=== PATIENT | male | born 1995 | race Caucasian/White ===

== ENCOUNTER 2017-06-26 01:00 | Inpatient (IN) | payer OTHER ==
[2017-06-26 01:12] LABS: Glucose,Whole Blood 113 mg/dL (75-99)
[2017-06-26] MEDS ORDERED: SODIUM CHLORIDE 0.9% 500 ML IV STA (01:24)
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
[2017-06-26 01:33] LABS: Basophils # (A) 0.1 k/uL (0-0.2); Basophils % (A) 1 %; CHCM 34.1; Eosinophils # (A) 0.1 k/uL (0-0.7); Eosinophils % (A) 1 %; HCT 43.3 % (39.0-53.0); HDW 2.53; HGB 14.5 gm/dL (13.0-17.5); Luc # (Auto) 0.16; Luc % (Auto) 2; Lymphocytes # (A) 2.7 k/uL (1.0-4.8); Lymphocytes % (A) 31 %; MCH 30.6 pg (25.0-35.0); MCHC 33.5 g/dL (31.0-37.0); MCV 91.4 fL (80.0-100.0); Mean Platelet Volume 8.1; Monocytes # (A) 0.6 k/uL (0-1.0); Monocytes % (A) 7 %; Neutrophils # (A) 5.3 k/uL (1.3-7.7); Neutrophils % (A) 59 %; RBC 4.74 m/uL (4.30-5.90); RDW 14.1 % (11.5-15.5); WBC 8.9 k/uL (3.8-10.6); WBC (Perox) 9.04
[2017-06-26] MEDS ORDERED: RX INFO: IV CONTRAST WAS GIVEN 1 EACH MISC MISCELLANE PRN (01:35)
[2017-06-26 01:46] LABS: INR 1.1 (<1.2); Partial Thromboplastin Time 26.6 sec (22.0-30.0); Prothrombin Time 11.1 sec (9.0-12.0)
[2017-06-26 01:48] LABS: ALT 51 U/L (21-72); AST 35 U/L (17-59); Alkaline Phosphatase 79 U/L (38-126); Blood Urea Nitrogen 17 mg/dL (9-20); Calcium 9.3 mg/dL (8.4-10.2); Carbon Dioxide 27 mmol/L (22-30); Chloride 101 mmol/L (98-107); Glucose 110 mg/dL (74-99); Non-African American GFR(MDRD) >60 (>60 ml/min/1.73 sqM); Potassium 4.1 mmol/L (3.5-5.1); Total Bilirubin 0.5 mg/dL (0.2-1.3); Total Protein 7.1 g/dL (6.3-8.2)
[2017-06-26 01:58] LABS: Creatine Kinase 125 U/L (55-170)
[2017-06-26 02:01] LABS: Anion Gap 13 mmol/L; Sodium 141 mmol/L (137-145)
--- NOTE | 2017-06-26 02:05 | CT ---
EXAM: CT Angiography Head With Intravenous Contrast CLINICAL HISTORY: Reason: Neuro Deficits TECHNIQUE: Axial computed tomographic angiography images of the head with intravenous contrast using CT angiography protocol. CTDI is 57.40 mGy and DLP is 1008.10 mGy-cm. This CT exam was performed using one or more of the following dose reduction techniques: automated exposure control, adjustment of the mA and/or kV according to patient size, and/or use of iterative reconstruction technique. MIP reconstructed images were created and reviewed. COMPARISON: No relevant prior studies available. FINDINGS: Right internal carotid artery: No acute findings. Intracranial segment is patent with no significant stenosis. No aneurysm. Right anterior cerebral artery: Unremarkable. No occlusion or significant stenosis. No aneurysm. Right middle cerebral artery: Unremarkable. No occlusion or significant stenosis. No aneurysm. Right posterior cerebral artery: Unremarkable. No occlusion or significant stenosis. No aneurysm. Right vertebral artery: Unremarkable as visualized. Left internal carotid artery: No acute findings. Intracranial segment is patent with no significant stenosis. No aneurysm. Left anterior cerebral artery: Unremarkable. No occlusion or significant stenosis. No aneurysm. Left middle cerebral artery: Unremarkable. No occlusion or significant stenosis. No aneurysm. Left posterior cerebral artery: Unremarkable. No occlusion or significant stenosis. No aneurysm. Left vertebral artery: Unremarkable as visualized. Basilar artery: Unremarkable. No occlusion or significant stenosis. No aneurysm. No intracranial hemorrhage, abnormal intra- or extra-axial collections or parenchymal lesions are seen. The shape and configuration of the cortical sulci, basal cisterns and ventricles are within normal limits. The yepez-white differentiation is preserved. No evidence of mass effect, midline shift, or edema. The paranasal sinuses and mastoid air cells are clear. Hyperostosis frontalis interna is suggested. IMPRESSION: Normal head CTA. No evidence of acute transcortical infarct or acute intracranial hemorrhage. If there is further clinical concern, MRI of the brain is recommended for further evaluation. EXAM: CT Angiography Neck With Intravenous Contrast CLINICAL HISTORY: Reason: Neuro Deficits TECHNIQUE: Axial computed tomographic angiography images of the neck with intravenous contrast using CT angiography protocol. CTDI is 137.20 mGy and DLP is 473.10 mGy-cm. This CT exam was performed using one or more of the following dose reduction techniques: automated exposure control, adjustment of the mA and/or kV according to patient size, and/or use of iterative reconstruction technique. MIP reconstructed images were created and reviewed. COMPARISON: No relevant prior studies available. FINDINGS: VASCULATURE: Right common carotid artery: Unremarkable. No significant stenosis. No dissection or occlusion. Right internal carotid artery: Unremarkable. Extracranial segment is patent with no significant stenosis. No dissection or occlusion. Right external carotid artery: Unremarkable. No occlusion. Right vertebral artery: Unremarkable. No significant stenosis. No dissection or occlusion. Left common carotid artery: Unremarkable. No significant stenosis. No dissection or occlusion. Left internal carotid artery: Unremarkable. Extracranial segment is patent with no significant stenosis. No dissection or occlusion. Left external carotid artery: Unremarkable. No occlusion. Left vertebral artery: Unremarkable. No significant stenosis. No dissection or occlusion. NECK: Bones/joints: No acute fracture. No dislocation. Soft tissues: Unremarkable as visualized. No mass. CAROTID STENOSIS REFERENCE USING NASCET CRITERIA: % ICA stenosis = (1 - narrowest ICA diameter/diameter of distal cervical ICA) x 100. Mild - <50% stenosis. Moderate - 50-69% stenosis. Severe - 70-94% stenosis. Near occlusion - 95-99% stenosis. Occluded - 100% stenosis. IMPRESSION: Normal neck CTA.
[2017-06-26 02:11] LABS: Creatine Kinase MB 0.7 ng/mL (0.0-2.4); Troponin I <0.012 ng/mL (0.000-0.034)
--- NOTE | 2017-06-26 02:11 | XR ---
EXAM: XR Chest, 2 Views CLINICAL HISTORY: Reason: altered mental status TECHNIQUE: Frontal and lateral views of the chest. COMPARISON: None. FINDINGS: Lungs: Bibasilar atelectasis and/or infiltrates are suggested. Pleural space: Unremarkable. No pneumothorax. Heart: Unremarkable. No cardiomegaly. Mediastinum: Unremarkable. Bones/joints: Unremarkable. IMPRESSION: Bibasilar atelectasis and/or infiltrates are suggested. Clinical correlation recommended.
--- NOTE | 2017-06-26 02:18 | CT ---
EXAM: CT Head Without Intravenous Contrast CLINICAL HISTORY: Reason: weakness TECHNIQUE: Axial computed tomography images of the head/brain without intravenous contrast. CTDI is 57.40 mGy and DLP is 1008.10 mGy-cm. This CT exam was performed using one or more of the following dose reduction techniques: automated exposure control, adjustment of the mA and/or kV according to patient size, and/or use of iterative reconstruction technique. COMPARISON: None. FINDINGS: Brain: Unremarkable. No hemorrhage. No significant white matter disease. No edema. Ventricles: Unremarkable. No ventriculomegaly. Bones/joints: Hyperostosis frontalis interna suggested. No acute fracture. Soft tissues: Unremarkable. Sinuses: Unremarkable as visualized. No acute sinusitis. Mastoid air cells: Unremarkable as visualized. No mastoid effusion. IMPRESSION: No acute findings.
[2017-06-26] MEDS ORDERED: ASPIRIN 81 MG CHEW PO STA (02:44)
[2017-06-26] MEDS ORDERED: ACETAMINOPHEN TAB 325 MG TAB PO STA (02:44)
[2017-06-26 05:24] VITALS: BMI 36.9
[2017-06-26] MEDS: SODIUM CHLORIDE 0.9% 1,000 ML IV SCH ×2 (06:52→15:22)
--- NOTE | 2017-06-26 08:10 | US ---
EXAMINATION TYPE: US carotid duplex BILAT DATE OF EXAM: 06/26/2017 COMPARISON: NONE CLINICAL HISTORY: Stenosis. Dizziness, slurred speech, left sided face numbness. EXAM MEASUREMENTS: RIGHT: Peak Systolic Velocity (PSV) cm/sec ----- Right CCA: 93.5 ----- Right ICA: 122.6 ----- Right ECA: 94.3 ICA/CCA ratio: 1.3 RIGHT: End Diastole cm/sec ----- Right CCA: 17.6 ----- Right ICA: 19.2 ----- Right ECA: 15.4 LEFT: Peak Systolic Velocity (PSV) cm/sec ----- Left CCA: 109.7 ----- Left ICA: 104.7 ----- Left ECA: 108.1 ICA/CCA ratio: 1.0 LEFT: End Diastole cm/sec ----- Left CCA: 22.5 ----- Left ICA: 20.6 ----- Left ECA: 14.4 VERTEBRALS (direction of flow): Right Vertebral: Antegrade Left Vertebral: Antegrade IMPRESSION: No evidence of hemodynamically significant stenosis although internal carotid arteries a nd common carotid arteries have peak systolic velocities nearing abnormal, which may relate to underl víctor hypertension.
[2017-06-26] MEDS: hydrOXYzine PAMOATE 25 MG CAP PO SCH (08:47)
[2017-06-26] MEDS: VENLAFAXINE HCL ER 75 MG CAP PO SCH (08:48)
[2017-06-26] MEDS ORDERED: METHYLPHENIDATE HCL 54 MG PO SCH (09:00)
--- NOTE | 2017-06-26 12:09 | ECHOF ---
Referral Reason:Thrombus MEASUREMENTS -------- HEIGHT: 182.9 cm WEIGHT: 127.0 kg BP: 136/96 RVIDd: 2.6 cm (< 3.3) IVSd: 1.1 cm (0.6 - 1.1) LVIDd: 4.2 cm (3.9 - 5.3) LVPWd: 1.4 cm (0.6 - 1.1) IVSs: 1.3 cm LVIDs: 3.2 cm LVPWs: 1.5 cm LA Diam: 3.2 cm (2.7 - 3.8) Ao Diam: 2.8 cm (2.0 - 3.7) AV Cusp: 1.8 cm (1.5 - 2.6) LA Diam: 3.7 cm (2.7 - 3.8) MV EXCURSION: 19.436 mm (> 18.000) MV EF SLOPE: 109 mm/s (70 - 150) EPSS: 0.9 cm MV E Familia: 0.85 m/s MV DecT: 227 ms MV A Familia: 0.65 m/s MV E/A Ratio: 1.32 RAP: 5.00 mmHg RVSP: 15.06 mmHg FINDINGS -------- Sinus rhythm. This was a technically adequate study. Morbid Obesity LV size, wall thickness and systolic function are normal, with an EF greater than 55%. The right ventricle is normal in size. The left atrial size is normal. The right atrial size is normal. The aortic valve is trileaflet, and appears structurally normal. No aortic stenosis or regurgitation. Mild mitral regurgitation is present. Mild tricuspid regurgitation present. There is no evidence of pulmonary hypertension. The right ventricular systolic pressure, as measured by Doppler, is 15.06mmHg. There is no pulmonic regurgitation present. The aortic root size is normal. There is no pericardial effusion. CONCLUSIONS -------- 1. Morbid Obesity 2. LV size, wall thickness and systolic function are normal, with an EF greater than 55%. 3. Mild mitral regurgitation is present. 4. Mild tricuspid regurgitation present. 5. There is no evidence of pulmonary hypertension. 6. The right ventricular systolic pressure, as measured by Doppler, is 15.06mmHg. 7. There is no pulmonic regurgitation present. 8. There is no pericardial effusion. SUPPLY COORDINATOR: Sarah Holguin RDCS
--- NOTE | 2017-06-26 13:14 | P.HPIM ---
History of Present Illness H&P Date: 06/26/17 Chief Complaint: Left-sided numbness His a 22-year-old gentleman with history of bipolar depression comes in to the hospital with complaints of left-sided weakness facial weakness and slurred speech that lasted about 45 minutes. Patient states that he was at a festival denies having any illicit drug use or any alcohol use Patient comes in to the hospital a CT angiogram was done which did not reveal any abnormalities Patient was out of the window for TPA time of his arrival States that he continues to have weakness on his left side. States that he's had a traumatic brain injury in the past and has had some trouble with his neck with shooting pains to his left arm At this time his main complaint is left lower extremity pain that radiates to his neck on and elevation of his leg Patient denies having any change in vision nausea vomiting abdominal pain diarrhea Patient denies having any previous history of strokes. Patient takes medications for ADHD bipolar depression Denies illicit drug use, tobacco use, any alcohol use Review of Systems All systems: negative (Noted in HPI) Past Medical History History of Any Multi-Drug Resistant Organisms: None Reported Additional Past Surgical History / Comment(s): knee Past Anesthesia/Blood Transfusion Reactions: No Reported Reaction Past Psychological History: Bipolar Smoking Status: Never smoker Past Alcohol Use History: Rare Past Drug Use History: None Reported Medications and Allergies Home Medications Medication Instructions Recorded Confirmed Type Divalproex ER [Depakote ER] 1,000 mg PO HS 06/26/17 06/26/17 History Methylphenidate HCl [Concerta] 54 mg PO DAILY 06/26/17 06/26/17 History Venlafaxine HCl [Venlafaxine HCl 225 mg PO DAILY 06/26/17 06/26/17 History ER] hydrOXYzine PAMOATE [Vistaril] 25 mg PO TID PRN 06/26/17 06/26/17 History Allergies Allergy/AdvReac Type Severity Reaction Status Date / Time No Known Allergies Allergy Verified 06/26/17 07:37 Physical Exam Vitals: Vital Signs Temp Pulse Pulse Resp BP BP Pulse Ox 06/26/17 12:00 97.0 F L 63 18 116/59 97 06/26/17 08:00 97.6 F 61 16 127/69 98 06/26/17 04:50 97.0 F L 65 18 136/96 97 06/26/17 04:14 98.1 F 80 18 128/80 99 06/26/17 03:30 76 18 121/68 98 06/26/17 03:00 83 20 126/62 98 06/26/17 02:30 76 18 138/78 98 06/26/17 02:18 90 18 133/72 100 06/26/17 02:03 74 18 137/75 100 06/26/17 01:48 80 18 141/83 80 L 06/26/17 01:33 66 18 143/79 99 06/26/17 01:18 75 18 133/94 98 06/26/17 01:03 97.7 F 76 18 117/73 97 Intake and Output 06/25/17 06/26/17 06/26/17 22:59 06:59 14:59 Intake Total 150 800 Balance 150 800 Intake: IV 150 800 Sodium Chloride 0.9% 1, 150 800 000 ml @ 100 mls/hr IV . Q10H JAKOB Rx#:[id number] Other: # Voids 2 Weight 126.9 kg Physical exam Gen. appearance oriented 3 in no distress Neck is supple no JVD Lungs good air entry clear to auscultation no rhonchi or wheezing Heart S1-S2 heard regular rate and rhythm no murmurs appreciated Abdomen is soft nontender no organomegaly bowel sounds are intact Neurologically cranial nerves II-12 grossly intact inconsistent exam however there appears to be some left upper extremity weakness Left lower extremity patient complains of more tenderness strength appears to be 5 out of 5 right upper and lower x-ray strength is 5 out of 5 there is some dysdiadochokinesia noted Skin no abnormalities appreciated Results CBC & Chem 7: 06/26/17 01:04 06/26/17 01:04 Labs: Abnormal Lab Results - Last 24 Hours (Table) 06/26/17 06/26/17 Range/Units 01:04 01:09 Glucose 110 H (74-99) mg/dL POC Glucose (mg/dL) 113 H (75-99) mg/dL Thrombosis Risk Factor Assmnt - Choose All That Apply Any of the Below Risk Factors Present?: No Other Risk Factors: No Other congenital or acquired thrombophilia - If yes, enter type in comment: No Thrombosis Risk Factor Assessment Level: Very Low Risk Assessment and Plan Plan: #1 rule out acute CVA of the right MCA territory with left-sided weakness and a right dominant person #2 bipolar depression # ADHD #4 obesity Plan Continue ongoing care IV fluids. We'll obtain a drug screen on the patient An MRI of the brain without contrast will be done Continue neuro checks Encourage ambulation Telemetry Echocardiogram and carotid Doppler were reviewed Neurology consultation Aspirin was given to the patient.
[2017-06-26 13:32] LABS: Appearance,Urine Clear (Clear); Bilirubin,Urine Negative (Negative); Glucose,Urine (UA) Negative (Negative); Ketones,Urine Negative (Negative); Leukocyte Esterase,Urine Small (Negative); Mucus,Urine Rare /hpf; Nitrite,Urine Negative (Negative); PH, Urine 6.5 (5.0-8.0); Particle Count 2566; Protein,Urine Negative (Negative); RBC,Urine 1 /hpf (0-5); Specific Gravity,Urine 1.025 (1.001-1.035); Squamous Epithelial Cell,Urine <1 /hpf (0-4); UA Billing (MACRO vs. MICRO) MICRO; Urobilinogen,Urine <2.0 mg/dL (<2.0); WBC,Urine 9 /hpf (0-5)
[2017-06-26] MEDS: ACETAMINOPHEN TAB 325 MG TAB PO PRN ×2 (15:41→20:15)
--- NOTE | 2017-06-26 19:50 | XR ---
EXAMINATION TYPE: XR orbit detect foreign body DATE OF EXAM: 06/26/2017 COMPARISON: NONE HISTORY: Check for foreign body TECHNIQUE: 3 views FINDINGS: Orbital margins are intact. There is no sign of radiopaque foreign body. Paranasal sinuses appear normal. IMPRESSION: Normal exam
--- NOTE | 2017-06-26 20:17 | P.CNNES ---
History of Present Illness Consult date: 06/26/17 Reason for Consult: Patient with arm weakness and possible stroke. History of Present Illness: This patient is a 22-year-old right-handed white male who was in his usual state of health until yesterday evening. Patient states he was attending a local fair and was driving home when he developed some symptoms of left-sided numbness. He continued on his way and was at a gas station and was noted to have increasing symptoms of left-sided numbness and weakness. He states that it was mostly involving his left leg and then slowly seem to worsen when all his entire left side. He states that in included the left leg, left arm, and left side of the face. He also noted some tingling and numbing sensation involving the tongue. He was quite concerned as he was having difficulty walking as well. He was able to contact a friend who came to the gas station. The gas dispatcher and his friend noted that he was clearly having some acute onset of symptoms and recommended that an ambulance be called for him. EMS arrived at the gas station and brought him into the emergency room for further evaluation yesterday evening. The patient was seen in the ER by Dr. Corral who evaluated him. He came in early this morning to the ER. He was sent for a computed tomography scan of the brain which was reported normal. Soon after admission he was also complaining of low back pain. The patient was examined today on the medical floor with his parents at bedside. Parent states he had been doing well and had no major medical issue that they were concerned about. He does have a history of underlying bipolar disorder and does follow with his psychiatrist Dr. Monique on a regular basis. He is on multiple medications for treatment of his bipolar disorder including Concerta, Depakote, Benaflaxin, and Vistaril. Apparently all of these medications are monitored by his psychiatrist. There is been no recent changes to his medications according to the patient and his parents. In the emergency room the patient did undergo a evaluation for possibility of stroke. A code stroke was initiated in the ER by Dr. Corral. The neuro interventional his were contacted by the stroke robotic and he was felt not to be a candidate for TPA as he was outside of three -hour window. Patient was subsequent admitted to the hospital for full stroke evaluation. His NIH stroke scale in the ER was noted to be 5.0. The patient was then admitted to the selective care floor for further management. Since coming to the floor he has been complaining of increasing low back pain. Patient continues to have symptoms of left-sided numbness but the intensity is much less since admission to the hospital. The patient has no previous history of similar symptoms. He denies any history of closed head injury or head trauma in the past. He clearly denies any recent falls to injure his back. He is not currently working. He states he hasn't some difficulty with his vision yesterday at the onset of symptoms. He denies any evidence of diplopia. He is now been admitted and neurology has been consulted for further evaluation and recommendations. Review of Systems Constitutional: Denies chills, Denies fever Eyes: denies blurred vision, denies pain Ears, nose, mouth and throat: Denies headache, Denies sore throat Cardiovascular: Denies chest pain, Denies shortness of breath Respiratory: Denies cough Gastrointestinal: Denies abdominal pain, Denies diarrhea, Denies nausea, Denies vomiting Musculoskeletal: Reports low back pain, Reports neck pain, Denies myalgias Integumentary: Denies pruritus, Denies rash Neurological: Reports balance difficulties, Reports gait dysfunction, Reports paresthesias, Reports tingling, Denies numbness, Denies weakness Psychiatric: Denies anxiety, Denies depression Endocrine: Denies fatigue, Denies weight change Past Medical History History of Any Multi-Drug Resistant Organisms: None Reported Additional Past Surgical History / Comment(s): knee Past Anesthesia/Blood Transfusion Reactions: No Reported Reaction Past Psychological History: Bipolar Smoking Status: Never smoker Past Alcohol Use History: Rare Past Drug Use History: None Reported Medications and Allergies Home Medications Medication Instructions Recorded Confirmed Type Divalproex ER [Depakote ER] 1,000 mg PO HS 06/26/17 06/26/17 History Methylphenidate HCl [Concerta] 54 mg PO DAILY 06/26/17 06/26/17 History Venlafaxine HCl [Venlafaxine HCl 225 mg PO DAILY 06/26/17 06/26/17 History ER] hydrOXYzine PAMOATE [Vistaril] 25 mg PO TID PRN 06/26/17 06/26/17 History Allergies Allergy/AdvReac Type Severity Reaction Status Date / Time No Known Allergies Allergy Verified 06/26/17 07:37 Physical Examination - Vital Signs Vital Signs: Vital Signs Temp Pulse Pulse Resp BP BP BP 06/26/17 15:17 97.0 F L 63 16 122/64 06/26/17 12:00 97.0 F L 63 18 116/59 06/26/17 08:00 97.6 F 61 16 127/69 06/26/17 04:50 97.0 F L 65 18 136/96 06/26/17 04:14 98.1 F 80 18 128/80 06/26/17 03:30 76 18 121/68 06/26/17 03:00 83 20 126/62 06/26/17 02:30 76 18 138/78 06/26/17 02:18 90 18 133/72 06/26/17 02:03 74 18 137/75 06/26/17 01:48 80 18 141/83 06/26/17 01:33 66 18 143/79 06/26/17 01:18 75 18 133/94 06/26/17 01:03 97.7 F 76 18 117/73 Pulse Ox 06/26/17 15:17 95 06/26/17 12:00 97 06/26/17 08:00 98 06/26/17 04:50 97 06/26/17 04:14 99 06/26/17 03:30 98 06/26/17 03:00 98 06/26/17 02:30 98 06/26/17 02:18 100 06/26/17 02:03 100 06/26/17 01:48 80 L 06/26/17 01:33 99 06/26/17 01:18 98 06/26/17 01:03 97 Intake and Output 06/26/17 06/26/17 06/26/17 06:59 14:59 22:59 Intake Total 150 1040 Balance 150 1040 Intake: IV 150 800 Sodium Chloride 0.9% 1, 150 800 000 ml @ 100 mls/hr IV . Q10H [facility] Rx#:[id number] Oral 240 Other: # Voids 2 Weight 126.9 kg - Constitutional General appearance: average body habitus, cooperative - EENT EENT: PERRL, mucous membranes moist - Respiratory Respiratory: lungs clear, normal breath sounds - Cardiovascular Cardiovascular: regular rate, normal S1, normal S2 Extremities: no peripheral edema bilaterally - Gastrointestinal Gastrointestinal: normoactive bowel sounds - Integumentary Integumentary: normal - Neurologic Cranial nerve examination: PERRL, EOMI, VFF, V1/V2/V3 grossly intact, face symmetric, tongue midline, intact gag reflex, intact corneal reflex, normal palatal elevation Speech examination: intact Sensorimotor examination: intact Motor examination - right side: 5/5: biceps, triceps, wrist flexion, wrist extension, environmental coordinator, hip flexors, knee extensors, dorsiflexion, toe extension (EHL) , plantarflexion Motor examination - left side: 3/5: wrist flexion, wrist extension, environmental coordinator, hip flexors, knee extensors, dorsiflexion, toe extension (EHL), plantarflexion, 4/5 : biceps, triceps Detailed sensory examination: intact Reflex and gait examination: intact Reflexes: 1+: bicep, knee, tricep, 4+: ankle (Patient has bilateral ankle clonus.) - Musculoskeletal Musculoskeletal: no pain - Psychiatric Psychiatric: mood/affect appropriate, cooperative Results - Laboratory Findings CBC and BMP: 06/26/17 01:04 06/26/17 01:04 Abnormal Lab Findings: Abnormal Labs 06/26/17 06/26/17 06/26/17 01:04 01:09 12:45 Glucose 110 H POC Glucose (mg/dL) 113 H Ur Leukocyte Esterase Small H Urine WBC 9 H Urine Mucus Rare H Assessment and Plan (1) Demyelinating disease of central nervous system Status: Acute Code(s): G37.9 - DEMYELINATING DISEASE OF CENTRAL NERVOUS SYSTEM , UNSPECIFIED (2) TIA (transient ischemic attack) Status: Acute Code(s): G45.9 - TRANSIENT CEREBRAL ISCHEMIC ATTACK, UNSPECIFIED (3) Low back pain Status: Acute Code(s): M54.5 - LOW BACK PAIN (4) Left arm weakness Status: Acute Code(s): R29.898 - OTH SYMPTOMS AND SIGNS INVOLVING THE MUSCULOSKELETAL SYSTEM Plan: This patient is a 22-year-old right-handed white male who was admitted to Hospital with symptoms of acute left-sided paresthesias and weakness. Patient was brought into the emergency room where he was seen by Dr. Corral. He was evaluated for possibility of acute stroke. He underwent a NIH stroke scale which came back at 5.0 and was completed at 1:25 AM. He was not felt to be a candidate for TPA or other intervention as per the recommendations of the neuro interventional his reviewed his computed tomography scan and CT angiogram results. He was outside of the intervention window of 3 hours. He was admitted to hospital for further evaluation. His neurological examination reveals evidence of left-sided paresthesia and numbness. He also has hyperreflexia in both upper and lower extremities. There is evidence of bilateral ankle clonus. He does have some degree of visual changes as well. This constellation of findings in a young male suggests possibility of underlying demyelinating disease. Patient also complains of new onset of low back pain in the lumbar region. We have recommended the patient should undergo an MRI and MRA of the brain. We will also obtain an MRI of the lumbar spine for further evaluation of his low back pain. His differential diagnosis does include possibility of TIA versus stroke. We have discussed all of these findings and test results in detail with the patient and both of his parents who are at bedside. We have gone over the differential diagnosis with the patient which does include multiple sclerosis as well as possible TIA versus stroke. We will continue aggressive evaluation of this patient and we'll await the results of his MRI. His overall prognosis at this time remains guarded. Time with Patient: Greater than 30
[2017-06-26] MEDS ORDERED: DIVALPROEX ER 500 MG TAB.ER.24H PO SCH (21:00)
[2017-06-26 22:20] LABS: Cholesterol 130 mg/dL (<200); HDL Cholesterol 34 mg/dL (40-60)
[2017-06-26 22:59] VITALS: RESP 18
[2017-06-27] MEDS: ACETAMINOPHEN TAB 325 MG TAB PO PRN (01:11)
[2017-06-27] MEDS ORDERED: HYDROcodone/APAP 5-325MG 1 EACH TAB PO PRN (06:45)
[2017-06-27] MEDS ORDERED: HYDROmorphone 1 MG/ML 1 ML SYRINGE IVP PRN (06:45)
[2017-06-27] MEDS: SODIUM CHLORIDE 0.9% 1,000 ML IV SCH ×2 (06:55→10:07)
[2017-06-27] MEDS ORDERED: ASPIRIN 325 MG TAB PO SCH (09:00)
--- NOTE | 2017-06-27 09:56 | MR ---
EXAMINATION TYPE: MR angio head wo con DATE OF EXAM: 06/27/2017 COMPARISON: NONE HISTORY: Right sided weakness TECHNIQUE: Time of flight images focusing on the [place] were performed without contrast. FINDINGS: There is arterial flow in the vertebrobasilar artery system. There is arterial flow in the anterior middle and posterior cerebral arteries. There are diminutive posterior communicating arterie s. There is no mass effect. There is no sign of aneurysm or neovascularity. There is no evidence of s tenosis. IMPRESSION: Negative MR angiogram of the brain.
[2017-06-27] MEDS: hydrOXYzine PAMOATE 25 MG CAP PO SCH (10:18)
[2017-06-27] MEDS: VENLAFAXINE HCL ER 75 MG CAP PO SCH (10:19)
--- NOTE | 2017-06-27 10:22 | MR ---
History weakness. Paresthesia. Comparison none. TECHNIQUE: Multiplanar multiecho imaging of the brain was performed without contrast. FINDINGS: Ventricles and sulci appear normal. There is no mass effect nor midline shift. There is no sign of in tracranial hemorrhage. Power and white matter structures have fairly normal signal pattern. There is n o evidence of cerebral edema. Brainstem appears normal. Calvarium is intact. There is no evidence of a posterior fossa mass. There is no pathologic enhancement. The lumbar vertebra have normal spacing and alignment. Lumbar nerve roots appear normal. There is no spinal stenosis. There is no compression fracture. There is a very small posterior disc bulge at L5-S 1. There is no paraspinal mass. I see no bony destructive process. Lower thoracic spinal cord appears normal. There is no pathologic enhancement. Neural foramina are widely patent. conclusion Brain Negative MR scan of the brain. Lumbar spine Negative MR scan of the lumbar spine.
[2017-06-27] MEDS ORDERED: CYCLOBENZAPRINE 5 MG TAB PO STA (11:28)
[2017-06-27] MEDS ORDERED: methylPREDNISolone SOD SUCCI 125 MG/2 ML VIAL IV STA (11:29)
--- NOTE | 2017-06-27 11:32 | P.DS ---
Providers Date of admission: 06/26/17 03:49 Attending physician: Bhaskar Hawk Consults: 06/26/17 03:51 Consult Physician Routine Consulting Provider: Stephanie Mccurdy Consult Reason/Comments: Left arm weakness. Ischemic stroke Do you want consulting provider notified?: Yes Primary care physician: Physician Nonstaff Hospital Course: 22-year-old gentleman with history of bipolar depression comes in to the hospital with complaints of left-sided weakness facial weakness and slurred speech that lasted about 45 minutes. Patient states that he was at a festival denies having any illicit drug use or any alcohol use Patient comes in to the hospital a CT angiogram was done which did not reveal any abnormalities Patient was out of the window for TPA time of his arrival States that he continues to have weakness on his left side. States that he's had a traumatic brain injury in the past and has had some trouble with his neck with shooting pains to his left arm At this time his main complaint is left lower extremity pain that radiates to his neck on and elevation of his leg Patient denies having any change in vision nausea vomiting abdominal pain diarrhea Patient denies having any previous history of strokes. Patient takes medications for ADHD bipolar depression Denies illicit drug use, tobacco use, any alcohol use 06/27/2017 Patient states that his numbness and weakness on the left side is improved his only complaint is a lower back pain and shooting pain down his left leg when he raises it. Denies having any headaches change in vision nausea vomiting or diarrhea. Physical exam Gen. appearance oriented 3 in no distress Neck is supple no JVD Lungs good air entry clear to auscultation no rhonchi or wheezing Heart S1-S2 heard regular rate and rhythm no murmurs appreciated Abdomen is soft nontender no organomegaly bowel sounds are intact Neurologically cranial nerves II-12 grossly intact inconsistent exam however there appears to be some left upper extremity weakness Left lower extremity patient complains of more tenderness strength appears to be 5 out of 5 right upper and lower x-ray strength is 5 out of 5 there is some dysdiadochokinesia noted Skin no abnormalities appreciated Assessment and Plan Plan: #1 acute TIA and question of a demyelinating disorder #2 bipolar depression # ADHD #4 obesity #5 sciatica Plan MRI MRA MRI of the brain and MRI of the L-spine were negative no demyelinating lesions were noted Patient today complains of pain in his left lower extremity suspicious for sciatica Patient be given 1 dose of Solu-Medrol We'll be discharged on Flexeril and ibuprofen Patient Condition at Discharge: Fair Plan - Discharge Summary New Discharge Prescriptions: New Cyclobenzaprine [Flexeril] 5 mg PO TID #10 tablet Ibuprofen [Motrin] 800 mg PO TID #30 tab Continue Venlafaxine HCl [Venlafaxine HCl ER] 225 mg PO DAILY Divalproex ER [Depakote ER] 1,000 mg PO HS hydrOXYzine PAMOATE [Vistaril] 25 mg PO TID PRN PRN Reason: Allergy Symptoms Methylphenidate HCl [Concerta] 54 mg PO DAILY Discharge Medication List Divalproex ER [Depakote ER] 1,000 mg PO HS 06/26/17 [History] Methylphenidate HCl [Concerta] 54 mg PO DAILY 06/26/17 [History] Venlafaxine HCl [Venlafaxine HCl ER] 225 mg PO DAILY 06/26/17 [History] hydrOXYzine PAMOATE [Vistaril] 25 mg PO TID PRN 06/26/17 [History] Cyclobenzaprine [Flexeril] 5 mg PO TID #10 tablet 06/27/17 [Rx] Ibuprofen [Motrin] 800 mg PO TID #30 tab 06/27/17 [Rx] Follow up Appointment(s)/Referral(s): Stephanie Mccurdy MD [STAFF PHYSICIAN] - 1 Week Nonstaff,Physician [Primary Care Provider] - 1-2 days Discharge Disposition: HOME SELF-CARE
[2017-06-27 12:23] VITALS: BP 109/60
[2017-06-27] MEDS ORDERED: HYDROcodone/APAP 10-325MG 1 EACH TAB PO ONE (14:33)
[2017-06-27 15:15] VITALS: PULSE 68; TEMP 97
--- NOTE | 2017-06-27 18:35 | EEG ---
DATE OF EE06/27/17 INDICATIONS FOR EXAMINATION: This patient is a 22-year-old male being evaluated for acute left sided weakness and numbness. AGE: 22. EEG FINDINGS: A routine 21 channel awake digital EEG recording was accomplished utilizing the 10-20 international system with bipolar and referential montages. The background activity in the most alert resting state consists of a low to medium amplitude, poorly developed and poorly sustained 6- 7 Hz activity over the posterior head regions. This posterior rhythm attenuates to eye opening. There is a small amount of low amplitude 18-20 Hz beta activity seen maximally over the anterior head regions. Muscle and movement artifact was observed on a several occasions during the tracing. Hyperventilation was not performed. Photic stimulation at flash frequencies of 2-30 Hz produced a good symmetrical occipital driving response. No epileptiform discharges were seen. IMPRESSION: This EEG is moderately abnormal in a diffuse fashion due to slowing of the EEG background. The EEG failed to reveal any focal, lateralized or epileptiform abnormalities. Clinical correlation is recommended. MTDD
== END 2017-06-27 15:43 | disposition home or self-care (01) | DRG 69 ==
LOC: EC 01:00 → 6SEL 03:49
PROVIDERS: ADMIT Hospitalist; ATTEND Hospitalist
DX: G45.9 Transient cerebral ischemic attack, unspecified (principal); G37.9 Demyelinating disease of central nervous system, unspecified; E66.9 Obesity, unspecified; F31.9 Bipolar disorder, unspecified; F90.9 Attention-deficit hyperactivity disorder, unspecified type; M54.40 Lumbago with sciatica, unspecified side; Z87.820 Personal history of traumatic brain injury; Z79.899 Other long term (current) drug therapy
CPT/HCPCS: 36415; 70030; 70450; 70496; 70498; 70544; 70553; 71020; 72158; 80053; 80061; 80306; 81001; 82306; 82550; 82553; 84484; 85025; 85610; 85730; 93005; 93306; 93880; 95819; 96360; 99285